=== PATIENT | male | born 1990 | race Caucasian/White ===

== ENCOUNTER 2017-02-01 20:38 | Observation (INO) ==
[2017-02-01 21:30] LABS: Basophils % 0.8 %; Eosinophils # 0.1 K/mcL (0.0-0.6); Eosinophils % 2.2 %; Hematocrit 41.2 % (37.5-50.1); Hemoglobin 13.2 g/dL (12.9-16.9); Immature Platelets 5.5 % (1.1-6.1); Lymphocytes # 2.1 K/mcL (0.6-4.6); Lymphocytes % 43.1 %; Mean Corpuscular Hemoglobin 28.6 pg (28.0-33.3); Mean Corpuscular Volume 89.2 fL (83.0-100.0); Mean Platelet Volume 10.7 fL (9.4-12.4); Monocytes # 0.4 K/mcL (0.0-1.3); Monocytes % 7.3 %; Neutrophils # 2.3 K/mcL (1.6-8.9); Platelet Count 233 K/mcL (140-400); Red Blood Count 4.62 M/mcL (4.19-5.50); Red Cell Distribution Width 13.4 % (11.5-14.5); Segmented Neutrophils % 46.6 %
[2017-02-01] MEDS ORDERED: Ondansetron ODT 4 MG TAB.RAPDIS SL ONE (21:41)
[2017-02-01 21:45] LABS: BUN/Creatinine Ratio 14 (6-26); Blood Urea Nitrogen 15 mg/dL (8-26); Calcium 9.6 mg/dL (8.6-10.8); Carbon Dioxide 26 mEq/L (19-29); Chloride 109 mEq/L (98-109); Glucose 130 mg/dL (70-99); Osmolality,Calculated 299 (280-300); Potassium 4.2 mEq/L (3.5-4.5); Sodium 143 mEq/L (136-145); eGFR For African Americans > 60 (> 60); eGFR For Non-African Americans > 60 (> 60)
--- NOTE | 2017-02-01 21:48 | Emergency Department Note ---
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 Roxanna states that he has been in withdrawl for the past 48 hours and has been nauseated and today made a comment about "how he would rather than go through this." His grandmother became increasingly concerned and asked him to come to the ED because he had made a suicidal type statement. Roxanna states that he has had a few episodes of vomitting and diarrhea but it otherwise tolerate the withdrawl well. Alexander denies all other symptoms. - Related Data Allergies Allergy/AdvReac Type Severity Reaction Status Date / Time No Known Allergies Allergy Verified 02/01/17 20:48 Constitutional: Denies: fever, chills, weakness, weight change Eyes: Denies: eye pain, eye discharge, vision change ENT ED: Denies: ear pain, throat pain, dental pain, epistaxis, congestion, dysphagia Cardiovascular: Denies: chest pain, palpitations, dyspnea on exertion, edema, syncope Respiratory: Denies: cough, dyspnea, wheezes, hemoptysis Gastrointestinal: Reports: nausea, vomiting, diarrhea. Denies: abdominal pain, constipation, hematemesis, melena, hematochezia Genitourinary: Denies: urgency, dysuria, frequency, hematuria Musculoskeletal: Denies: back pain, neck pain, arthralgia, myalgia Integumentary: Denies: rash, abrasion, lesions Neurological: Denies: headache, weakness, numbness, paresthesias, confusion, abnormal gait, vertigo Psychiatric: Denies: anxiety, depression, suicidal thoughts, homicidal thoughts , auditory hallucinations, visual hallucinations Endocrine: Denies: fatigue Past Medical History - Past Medical History Medical history: Reports: no medical history Psychiatric history: Reports: anxiety, depression - Social History Smoking Status: Never smoker Alcohol use: Reports: none Drug use: Reports: opiates, IVDU, prescription drug abuse Physical Exam - General Limitations: no limitations General appearance: alert, in no apparent distress - Head Head exam: atraumatic, normocephalic, normal inspection - Eye Eye exam: Present: normal appearance, PERRL, EOMI - Expanded Eye Exam Pupils: Left: reactive - ENT ENT exam: normal exam, normal oropharynx, mucous membranes moist - Expanded ENT Exam External ear exam: Present: normal external inspection Mouth exam: Present: normal external inspection Teeth exam: Present: normal inspection Throat exam: Present: normal inspection - Neck Neck exam: Present: normal inspection, full ROM, trachea midline - Chest Chest inspection: Present: normal inspection, symmetric chest wall rise - Respiratory Respiratory exam: Present: normal lung sounds bilaterally - Cardiovascular Cardiovascular exam: Present: regular rate, normal rhythm, normal heart sounds - Abdominal Exam Abdominal exam: Present: soft, Non-Tender. Absent: tenderness, distention, guarding, rebound, rigidity - Extremities Exam Extremities exam: Present: normal inspection, full ROM. Absent: tenderness, pedal edema - Expanded Upper Extremity Exam Shoulder exam: Present: normal inspection, full ROM Arm exam: Present: normal inspection, full ROM Elbow exam: Present: normal inspection, full ROM Forearm/Wrist exam: Present: normal inspection, full ROM Hand exam: Present: normal inspection, full ROM Vascular exam: Normal: capillary refill, radial pulse - Expanded Lower Extremity Exam Hip/Pelvis exam: Present: normal inspection, full ROM Upper leg exam: Present: normal inspection, full ROM Knee exam: Present: normal inspection, full ROM Lower leg exam: Present: normal inspection, full ROM Ankle exam: Present: normal inspection, full ROM Foot/toe exam: Present: normal inspection, full ROM Neurovascular/Tendon exam: Absent: motor deficit, sensory deficit, tendon deficit - Back Exam Back exam: Present: normal inspection, full ROM. Absent: tenderness - Neurological Exam Neurological exam: Present: alert, oriented X3 - Expanded Neurological Exam Patient oriented to: Present: person, place, time Coma Scale Eye Opening: Spontaneous Coma Scale Motor Response: Obeys Commands Coma Scale Verbal Response: Oriented Coma Scale Total: 15 - Psychiatric Psychiatric exam: Present: normal affect, normal mood - Skin Skin exam: Present: warm, dry, intact, normal color Course Course Narrative: we will do a medical clearance and treat his nausea with zofran and then consult 1A. - Reevaluation(s) Reevaluation #1: patient is medically cleared. 1A consulted. Time: 22:20 Reevaluation #2: will sign patient out to night team. Plan is to follow terell reccomendations. He is otherwise medically stable and if he is dispostioned home will need rehab information zofran for symptomatic relief. Time: 22:40 Vital Signs Temperature 98.3 F 02/01/17 20:45 Pulse Rate 97 02/01/17 20:45 Respiratory Rate 20 02/01/17 20:45 Blood Pressure 140/73 02/01/17 20:45 O2 Sat by Pulse Oximetry 100 02/01/17 20:45 Temperature 98.3 F 02/01/17 20:45 Pulse Rate 97 02/01/17 20:45 Respiratory Rate 20 02/01/17 20:45 Blood Pressure 140/73 02/01/17 20:45 O2 Sat by Pulse Oximetry 100 02/01/17 20:45 Oxygen Delivery Oxygen Delivery Room Air Psych - Lab Data Result diagrams: 02/01/17 21:12 02/01/17 21:12 Lab Results 02/01/17 02/01/17 02/01/17 Range/Units 21:12 21:12 22:00 WBC 5.0 (4.3-11.1) K/mcL RBC 4.62 (4.19-5.50) M/mcL Hgb 13.2 (12.9-16.9) g/dL Hct 41.2 (37.5-50.1) % MCV 89.2 (83.0-100.0) fL MCH 28.6 (28.0-33.3) pg MCHC 32.0 (31.6-35.5) g/dL RDW 13.4 (11.5-14.5) % Plt Count 233 (140-400) K/mcL MPV 10.7 (9.4-12.4) fL Immature Gran % 0.0 (0-4) % Seg Neutrophils % 46.6 % Lymphocytes % 43.1 % Monocytes % 7.3 % Eosinophils % 2.2 % Basophils % 0.8 % Neutrophils # 2.3 (1.6-8.9) K/mcL Lymphocytes # 2.1 (0.6-4.6) K/mcL Monocytes # 0.4 (0.0-1.3) K/mcL Eosinophils # 0.1 (0.0-0.6) K/mcL Basophils # 0.0 (0.0-0.2) K/mcL Immature Plt Fraction 5.5 (1.1-6.1) % Sodium 143 (136-145) mEq/L Potassium 4.2 (3.5-4.5) mEq/L Chloride 109 (98-109) mEq/L Carbon Dioxide 26 (19-29) mEq/L BUN 15 (8-26) mg/dL Creatinine 1.10 (0.72-1.25) mg/dL Est GFR ( Amer) > 60 (> 60) Est GFR (Non-Af Amer) > 60 (> 60) BUN/Creatinine Ratio 14 (6-26) Glucose 130 H (70-99) mg/dL Calculated Osmolality 299 (280-300) Calcium 9.6 (8.6-10.8) mg/dL Urine Color Yellow (Yellow) Urine Clarity Clear (Clear) Urine pH 6.0 (5.0-8.0) pH Units Ur Specific [place] 1.030 H (1.010-1.025) Urine Protein Negative (Neg-Trace) mg/dL Urine Glucose (UA) Normal (Normal) mg/dL Urine Ketones Negative (Negative) mg/dL Urine Blood Negative (Negative) Urine Nitrite Negative (Negative) Urine Bilirubin Small H (Negative) Urine Urobilinogen Normal (Normal) mg/dL Ur Leukocyte Esterase Negative (Negative) Salicylates < 5.0 L (15-30) mg/dL Urine Opiates Screen (Unsgzs=933) ng/mL Acetaminophen < 1.0 L (10-30) mcg/mL Ur Barbiturates Screen (Trrztr=200) ng/mL Ur Phencyclidine Scrn (Cutoff=25) ng/mL Ur Amphetamines Screen (Dnvaky=8964) ng/mL U Benzodiazepines Scrn (Gjdjai=198) ng/mL Urine Cocaine Screen (Cutoff= 300) ng/mL U Marijuana (THC) Screen (Cutoff = 50) ng/mL Ethyl Alcohol < 10 (0-10) mg/dL 02/01/17 Range/Units 22:00 WBC (4.3-11.1) K/mcL RBC (4.19-5.50) M/mcL Hgb (12.9-16.9) g/dL Hct (37.5-50.1) % MCV (83.0-100.0) fL MCH (28.0-33.3) pg MCHC (31.6-35.5) g/dL RDW (11.5-14.5) % Plt Count (140-400) K/mcL MPV (9.4-12.4) fL Immature Gran % (0-4) % Seg Neutrophils % % Lymphocytes % % Monocytes % % Eosinophils % % Basophils % % Neutrophils # (1.6-8.9) K/mcL Lymphocytes # (0.6-4.6) K/mcL Monocytes # (0.0-1.3) K/mcL Eosinophils # (0.0-0.6) K/mcL Basophils # (0.0-0.2) K/mcL Immature Plt Fraction (1.1-6.1) % Sodium (136-145) mEq/L Potassium (3.5-4.5) mEq/L Chloride (98-109) mEq/L Carbon Dioxide (19-29) mEq/L BUN (8-26) mg/dL Creatinine (0.72-1.25) mg/dL Est GFR ( Amer) (> 60) Est GFR (Non-Af Amer) (> 60) BUN/Creatinine Ratio (6-26) Glucose (70-99) mg/dL Calculated Osmolality (280-300) Calcium (8.6-10.8) mg/dL Urine Color (Yellow) Urine Clarity (Clear) Urine pH (5.0-8.0) pH Units Ur Specific [place] (1.010-1.025) Urine Protein (Neg-Trace) mg/dL Urine Glucose (UA) (Normal) mg/dL Urine Ketones (Negative) mg/dL Urine Blood (Negative) Urine Nitrite (Negative) Urine Bilirubin (Negative) Urine Urobilinogen (Normal) mg/dL Ur Leukocyte Esterase (Negative) Salicylates (15-30) mg/dL Urine Opiates Screen Negative (Glpdac=899) ng/mL Acetaminophen (10-30) mcg/mL Ur Barbiturates Screen Negative (Rehkki=753) ng/mL Ur Phencyclidine Scrn Negative (Cutoff=25) ng/mL Ur Amphetamines Screen Negative (Ioycjk=2649) ng/mL U Benzodiazepines Scrn Negative (Bozxju=042) ng/mL Urine Cocaine Screen Positive H (Cutoff= 300) ng/mL U Marijuana (THC) Screen Positive H (Cutoff = 50) ng/mL Ethyl Alcohol (0-10) mg/dL Psychiatric Medical Clearance - Medical Clearance Checklist Medical History: No Social History Section defined Current Vitals: Last Vital Signs Temp 98.3 F 02/01/17 20:45 Pulse 97 02/01/17 20:45 Resp 20 02/01/17 20:45 BP 140/73 02/01/17 20:45 Pulse Ox 100 02/01/17 20:45 Psychiatric Lab Panel: Drug Levels and Toxicity 02/01/17 02/01/17 21:12 22:00 Urine Opiates Screen Negative Acetaminophen < 1.0 L Ur Barbiturates Screen Negative Ur Phencyclidine Scrn Negative Ur Amphetamines Screen Negative U Benzodiazepines Scrn Negative Urine Cocaine Screen Positive H U Marijuana (THC) Screen Positive H Ethyl Alcohol < 10 Abnormal Labs: Abnormal lab results Glucose 130 mg/dL (70-99) H 02/01/17 21:12 Ur Specific [place] 1.030 (1.010-1.025) H 02/01/17 22:00 Urine Bilirubin Small (Negative) H 02/01/17 22:00 Salicylates < 5.0 mg/dL (15-30) L 02/01/17 21:12 Acetaminophen < 1.0 mcg/mL (10-30) L 02/01/17 21:12 Urine Cocaine Screen Positive ng/mL (Cutoff= 300) H 02/01/17 22:00 U Marijuana (THC) Screen Positive ng/mL (Cutoff = 50) H 02/01/17 22:00 Statement of Medical Clearance: I have evaluated the patient, reviewed diagnostic information, and certify that the patient's medical condition is sufficiently stable that transfer to the psychiatric unit does not pose a significant risk of deterioration.
[2017-02-01 21:50] LABS: Acetaminophen < 1.0 mcg/mL (10-30); Ethanol < 10 mg/dL (0-10); Salicylate < 5.0 mg/dL (15-30)
[2017-02-01] MEDS ORDERED: CloNIDine Patch 0.1 MG PATCH (WEEKLY) TD STA (21:55)
--- NOTE | 2017-02-01 22:04 | Emergency Department Note ---
Disposition Clinical Impression: Suicidal ideation, Heroin withdrawal Disposition: Still a Patient Condition: Good Referrals: NO,PCP [Primary Care Provider] - Forms: ED Satisfaction Letter General Adult HPI - General Chief complaint: ED Psychiatric Symptoms Stated complaint: SI Source: patient Limitations: no limitations - History of Present Illness Pain Scale: 8 - Related Data Allergies Allergy/AdvReac Type Severity Reaction Status Date / Time No Known Allergies Allergy Verified 02/01/17 20:48 Constitutional: Denies: fever, chills, weakness, weight change Eyes: Denies: eye pain, eye discharge, vision change ENT ED: Denies: ear pain, throat pain, dental pain, epistaxis, congestion, dysphagia Cardiovascular: Denies: chest pain, palpitations, dyspnea on exertion, edema, syncope Respiratory: Denies: cough, dyspnea, wheezes, hemoptysis Gastrointestinal: Reports: nausea, vomiting, diarrhea. Denies: abdominal pain, constipation, hematemesis, melena, hematochezia Genitourinary: Denies: urgency, dysuria, frequency, hematuria Musculoskeletal: Denies: back pain, neck pain, arthralgia, myalgia Integumentary: Denies: rash, abrasion, lesions Neurological: Denies: headache, weakness, numbness, paresthesias, confusion, abnormal gait, vertigo Psychiatric: Denies: anxiety, depression, suicidal thoughts, homicidal thoughts , auditory hallucinations, visual hallucinations Endocrine: Denies: fatigue Past Medical History - Past Medical History Medical history: Reports: no medical history Psychiatric history: Reports: anxiety, depression - Social History Smoking Status: Never smoker Alcohol use: Reports: none Drug use: Reports: opiates, IVDU, prescription drug abuse Physical Exam - General Limitations: no limitations General appearance: alert, in no apparent distress Course - Reevaluation(s) Reevaluation #1: I saw the patient with the resident, Dr. Sinha. Patient presents with issues related opiate withdrawal and depression. He is getting some symptoms of withdrawal which we will treat with clonidine and Zofran. We will medically clear him and then have psychiatry see him. Time: 22:04 Vital Signs Temperature 98.3 F 02/01/17 20:45 Pulse Rate 97 02/01/17 20:45 Respiratory Rate 20 02/01/17 20:45 Blood Pressure 140/73 02/01/17 20:45 O2 Sat by Pulse Oximetry 100 02/01/17 20:45 Temperature 98.3 F 02/01/17 20:45 Pulse Rate 97 02/01/17 20:45 Respiratory Rate 20 02/01/17 20:45 Blood Pressure 140/73 02/01/17 20:45 O2 Sat by Pulse Oximetry 100 02/01/17 20:45 Oxygen Delivery Oxygen Delivery Room Air Medical Decision Making - Lab Data Result diagrams: 02/01/17 21:12 02/01/17 21:12 Lab Results 02/01/17 02/01/17 02/01/17 Range/Units 21:12 21:12 22:00 WBC 5.0 (4.3-11.1) K/mcL RBC 4.62 (4.19-5.50) M/mcL Hgb 13.2 (12.9-16.9) g/dL Hct 41.2 (37.5-50.1) % MCV 89.2 (83.0-100.0) fL MCH 28.6 (28.0-33.3) pg MCHC 32.0 (31.6-35.5) g/dL RDW 13.4 (11.5-14.5) % Plt Count 233 (140-400) K/mcL MPV 10.7 (9.4-12.4) fL Immature Gran % 0.0 (0-4) % Seg Neutrophils % 46.6 % Lymphocytes % 43.1 % Monocytes % 7.3 % Eosinophils % 2.2 % Basophils % 0.8 % Neutrophils # 2.3 (1.6-8.9) K/mcL Lymphocytes # 2.1 (0.6-4.6) K/mcL Monocytes # 0.4 (0.0-1.3) K/mcL Eosinophils # 0.1 (0.0-0.6) K/mcL Basophils # 0.0 (0.0-0.2) K/mcL Immature Plt Fraction 5.5 (1.1-6.1) % Sodium 143 (136-145) mEq/L Potassium 4.2 (3.5-4.5) mEq/L Chloride 109 (98-109) mEq/L Carbon Dioxide 26 (19-29) mEq/L BUN 15 (8-26) mg/dL Creatinine 1.10 (0.72-1.25) mg/dL Est GFR ( Amer) > 60 (> 60) Est GFR (Non-Af Amer) > 60 (> 60) BUN/Creatinine Ratio 14 (6-26) Glucose 130 H (70-99) mg/dL Calculated Osmolality 299 (280-300) Calcium 9.6 (8.6-10.8) mg/dL Urine Color Yellow (Yellow) Urine Clarity Clear (Clear) Urine pH 6.0 (5.0-8.0) pH Units Ur Specific [place] 1.030 H (1.010-1.025) Urine Protein Negative (Neg-Trace) mg/dL Urine Glucose (UA) Normal (Normal) mg/dL Urine Ketones Negative (Negative) mg/dL Urine Blood Negative (Negative) Urine Nitrite Negative (Negative) Urine Bilirubin Small H (Negative) Urine Urobilinogen Normal (Normal) mg/dL Ur Leukocyte Esterase Negative (Negative) Salicylates < 5.0 L (15-30) mg/dL Urine Opiates Screen (Hcsryi=664) ng/mL Acetaminophen < 1.0 L (10-30) mcg/mL Ur Barbiturates Screen (Vnrkix=941) ng/mL Ur Phencyclidine Scrn (Cutoff=25) ng/mL Ur Amphetamines Screen (Rhkxhl=6714) ng/mL U Benzodiazepines Scrn (Tjjgzb=617) ng/mL Urine Cocaine Screen (Cutoff= 300) ng/mL U Marijuana (THC) Screen (Cutoff = 50) ng/mL Ethyl Alcohol < 10 (0-10) mg/dL 02/01/17 Range/Units 22:00 WBC (4.3-11.1) K/mcL RBC (4.19-5.50) M/mcL Hgb (12.9-16.9) g/dL Hct (37.5-50.1) % MCV (83.0-100.0) fL MCH (28.0-33.3) pg MCHC (31.6-35.5) g/dL RDW (11.5-14.5) % Plt Count (140-400) K/mcL MPV (9.4-12.4) fL Immature Gran % (0-4) % Seg Neutrophils % % Lymphocytes % % Monocytes % % Eosinophils % % Basophils % % Neutrophils # (1.6-8.9) K/mcL Lymphocytes # (0.6-4.6) K/mcL Monocytes # (0.0-1.3) K/mcL Eosinophils # (0.0-0.6) K/mcL Basophils # (0.0-0.2) K/mcL Immature Plt Fraction (1.1-6.1) % Sodium (136-145) mEq/L Potassium (3.5-4.5) mEq/L Chloride (98-109) mEq/L Carbon Dioxide (19-29) mEq/L BUN (8-26) mg/dL Creatinine (0.72-1.25) mg/dL Est GFR ( Amer) (> 60) Est GFR (Non-Af Amer) (> 60) BUN/Creatinine Ratio (6-26) Glucose (70-99) mg/dL Calculated Osmolality (280-300) Calcium (8.6-10.8) mg/dL Urine Color (Yellow) Urine Clarity (Clear) Urine pH (5.0-8.0) pH Units Ur Specific [place] (1.010-1.025) Urine Protein (Neg-Trace) mg/dL Urine Glucose (UA) (Normal) mg/dL Urine Ketones (Negative) mg/dL Urine Blood (Negative) Urine Nitrite (Negative) Urine Bilirubin (Negative) Urine Urobilinogen (Normal) mg/dL Ur Leukocyte Esterase (Negative) Salicylates (15-30) mg/dL Urine Opiates Screen Negative (Cykkgg=394) ng/mL Acetaminophen (10-30) mcg/mL Ur Barbiturates Screen Negative (Atojyp=541) ng/mL Ur Phencyclidine Scrn Negative (Cutoff=25) ng/mL Ur Amphetamines Screen Negative (Ijtczo=7629) ng/mL U Benzodiazepines Scrn Negative (Mywkuo=071) ng/mL Urine Cocaine Screen Positive H (Cutoff= 300) ng/mL U Marijuana (THC) Screen Positive H (Cutoff = 50) ng/mL Ethyl Alcohol (0-10) mg/dL Attestation Statement - Attestation Attestation: I, Dr. Rawls, examined this patient [id number] and my medical decision- making was reviewed with Dr. Sinha, Resident Physician. I agree with the documented findings, disposition and treatment plan as described except to the extent set forth below. Please see my progress notes for details.
[2017-02-01 22:11] LABS: Bilirubin,Urine Small (Negative); Blood,Urine Negative (Negative); Clarity,Urine Clear (Clear); Color,Urine Yellow (Yellow); Glucose,Urine (UA) Normal (Normal); Ketones,Urine Negative (Negative); Leukocyte Esterase,Urine Negative (Negative); Nitrite,Urine Negative (Negative); Protein,Urine Negative (Neg-Trace); Urobilinogen,Urine Normal (Normal)
[2017-02-01 22:13] LABS: Amphetamine Screen,Urine Negative ng/mL (Cutoff=1000); Barbiturate Screen,Urine Negative ng/mL (Cutoff=200); Benzodiazepines Screen,Urine Negative ng/mL (Cutoff=200); Cannabinoid Screen,Urine Positive ng/mL (Cutoff = 50); Cocaine Screen,Urine Positive ng/mL (Cutoff= 300); Opiate Screen,Urine Negative ng/mL (Cutoff=300); Phencyclidine Screen,Urine Negative ng/mL (Cutoff=25)
--- NOTE | 2017-02-02 01:01 | Emergency Department Note ---
Disposition Clinical Impression: Suicidal ideation, Heroin withdrawal Disposition: Still a Patient Condition: Good Time of Disposition: 06:10 Psych HPI - General Chief Complaint: ED Psychiatric Symptoms Stated Complaint: SI Time Seen by Provider: 02/02/17 00:02 Source: patient - Related Data Allergies Allergy/AdvReac Type Severity Reaction Status Date / Time No Known Allergies Allergy Verified 02/01/17 20:48 Constitutional: Denies: fever, chills, weakness, weight change Eyes: Denies: eye pain, eye discharge, vision change ENT ED: Denies: ear pain, throat pain, dental pain, epistaxis, congestion, dysphagia Cardiovascular: Denies: chest pain, palpitations, dyspnea on exertion, edema, syncope Respiratory: Denies: cough, dyspnea, wheezes, hemoptysis Gastrointestinal: Reports: nausea, vomiting, diarrhea. Denies: abdominal pain, constipation, hematemesis, melena, hematochezia Genitourinary: Denies: urgency, dysuria, frequency, hematuria Musculoskeletal: Denies: back pain, neck pain, arthralgia, myalgia Integumentary: Denies: rash, abrasion, lesions Neurological: Denies: headache, weakness, numbness, paresthesias, confusion, abnormal gait, vertigo Psychiatric: Denies: anxiety, depression, suicidal thoughts, homicidal thoughts , auditory hallucinations, visual hallucinations Endocrine: Denies: fatigue Past Medical History - Past Medical History Medical history: Reports: no medical history Psychiatric history: Reports: anxiety, depression - Social History Smoking Status: Never smoker Alcohol use: Reports: none Drug use: Reports: opiates, IVDU, prescription drug abuse Physical Exam - General Limitations: no limitations General appearance: alert, in no apparent distress - Head Head exam: atraumatic, normocephalic, normal inspection - Eye Eye exam: Present: normal appearance, PERRL, EOMI - ENT ENT exam: mucous membranes moist - Neck Neck exam: Present: normal inspection, full ROM, trachea midline - Chest Chest inspection: Present: normal inspection, symmetric chest wall rise - Respiratory Respiratory exam: Present: normal lung sounds bilaterally - Cardiovascular Cardiovascular exam: Present: regular rate, normal rhythm, normal heart sounds - Abdominal Exam Abdominal exam: Present: soft, tenderness (mild generalized tenderness ). Absent: distention, guarding, rebound, rigidity - Extremities Exam Extremities exam: Present: normal inspection, full ROM. Absent: tenderness, pedal edema - Neurological Exam Neurological exam: Present: alert, oriented X3 - Psychiatric Psychiatric exam: Present: normal affect, normal mood - Skin Skin exam: Present: warm, dry, intact, normal color Course Course Narrative: Patient was a sign out from the day team, Dr. Sinha and Dr. Rawls. Please see their notes for any additional details. In summary, patient has a history of heroin abuse. He recently stopped using heroin and is having withdrawal symptoms. He is having some mild abdominal cramping and nausea, back pain. Physical exam shows heart regular rate and rhythm, lungs clear to auscultation. Abdominal exam soft, mild generalized tenderness with no rebound or rigidity. Back exam benign. Patient states he was suicidal and had a plan. He was evaluated by psychiatric team. He will be admitted here to the 1A team. Patient was given Bentyl while here for abdominal cramping. Destrehan slip placed on chart. Vital Signs Temperature 98.3 F 02/01/17 20:45 Pulse Rate 97 02/01/17 20:45 Respiratory Rate 20 02/01/17 20:45 Blood Pressure 140/73 02/01/17 20:45 O2 Sat by Pulse Oximetry 100 02/01/17 20:45 Temperature 98.3 F 02/01/17 20:45 Pulse Rate 97 02/01/17 20:45 Respiratory Rate 16 02/02/17 01:26 Blood Pressure 0/0 02/02/17 01:26 O2 Sat by Pulse Oximetry 100 02/01/17 20:45 Oxygen Delivery Oxygen Delivery Room Air Psych - MDM Narrative Medical decision making narrative: Patient was a sign out from the day team, Dr. Sinha and Dr. Rawls. Please see their notes for any additional details. In summary, patient has a history of heroin abuse. He recently stopped using heroin and is having withdrawal symptoms. He is having some mild abdominal cramping and nausea, back pain. Physical exam shows heart regular rate and rhythm, lungs clear to auscultation. Abdominal exam soft, mild generalized tenderness with no rebound or rigidity. Back exam benign. Patient states he was suicidal and had a plan. He was evaluated by psychiatric team. He will be admitted here to the 1A team. Patient was given Bentyl while here for abdominal cramping. Destrehan slip placed on chart. - Medical Records Medical records reviewed: Yes I reviewed the patient's medical records. - Lab Data Lab results reviewed: Yes I reviewed the patient's lab results. Result diagrams: 02/01/17 21:12 02/01/17 21:12 Lab Results 02/01/17 02/01/17 02/01/17 Range/Units 21:12 21:12 22:00 WBC 5.0 (4.3-11.1) K/mcL RBC 4.62 (4.19-5.50) M/mcL Hgb 13.2 (12.9-16.9) g/dL Hct 41.2 (37.5-50.1) % MCV 89.2 (83.0-100.0) fL MCH 28.6 (28.0-33.3) pg MCHC 32.0 (31.6-35.5) g/dL RDW 13.4 (11.5-14.5) % Plt Count 233 (140-400) K/mcL MPV 10.7 (9.4-12.4) fL Immature Gran % 0.0 (0-4) % Seg Neutrophils % 46.6 % Lymphocytes % 43.1 % Monocytes % 7.3 % Eosinophils % 2.2 % Basophils % 0.8 % Neutrophils # 2.3 (1.6-8.9) K/mcL Lymphocytes # 2.1 (0.6-4.6) K/mcL Monocytes # 0.4 (0.0-1.3) K/mcL Eosinophils # 0.1 (0.0-0.6) K/mcL Basophils # 0.0 (0.0-0.2) K/mcL Immature Plt Fraction 5.5 (1.1-6.1) % Sodium 143 (136-145) mEq/L Potassium 4.2 (3.5-4.5) mEq/L Chloride 109 (98-109) mEq/L Carbon Dioxide 26 (19-29) mEq/L BUN 15 (8-26) mg/dL Creatinine 1.10 (0.72-1.25) mg/dL Est GFR ( Amer) > 60 (> 60) Est GFR (Non-Af Amer) > 60 (> 60) BUN/Creatinine Ratio 14 (6-26) Glucose 130 H (70-99) mg/dL Calculated Osmolality 299 (280-300) Calcium 9.6 (8.6-10.8) mg/dL Urine Color Yellow (Yellow) Urine Clarity Clear (Clear) Urine pH 6.0 (5.0-8.0) pH Units Ur Specific [place] 1.030 H (1.010-1.025) Urine Protein Negative (Neg-Trace) mg/dL Urine Glucose (UA) Normal (Normal) mg/dL Urine Ketones Negative (Negative) mg/dL Urine Blood Negative (Negative) Urine Nitrite Negative (Negative) Urine Bilirubin Small H (Negative) Urine Urobilinogen Normal (Normal) mg/dL Ur Leukocyte Esterase Negative (Negative) Salicylates < 5.0 L (15-30) mg/dL Urine Opiates Screen (Ufysrw=235) ng/mL Acetaminophen < 1.0 L (10-30) mcg/mL Ur Barbiturates Screen (Ztnbqs=102) ng/mL Ur Phencyclidine Scrn (Cutoff=25) ng/mL Ur Amphetamines Screen (Nrqvkp=5024) ng/mL U Benzodiazepines Scrn (Fldfyv=965) ng/mL Urine Cocaine Screen (Cutoff= 300) ng/mL U Marijuana (THC) Screen (Cutoff = 50) ng/mL Ethyl Alcohol < 10 (0-10) mg/dL 02/01/17 Range/Units 22:00 WBC (4.3-11.1) K/mcL RBC (4.19-5.50) M/mcL Hgb (12.9-16.9) g/dL Hct (37.5-50.1) % MCV (83.0-100.0) fL MCH (28.0-33.3) pg MCHC (31.6-35.5) g/dL RDW (11.5-14.5) % Plt Count (140-400) K/mcL MPV (9.4-12.4) fL Immature Gran % (0-4) % Seg Neutrophils % % Lymphocytes % % Monocytes % % Eosinophils % % Basophils % % Neutrophils # (1.6-8.9) K/mcL Lymphocytes # (0.6-4.6) K/mcL Monocytes # (0.0-1.3) K/mcL Eosinophils # (0.0-0.6) K/mcL Basophils # (0.0-0.2) K/mcL Immature Plt Fraction (1.1-6.1) % Sodium (136-145) mEq/L Potassium (3.5-4.5) mEq/L Chloride (98-109) mEq/L Carbon Dioxide (19-29) mEq/L BUN (8-26) mg/dL Creatinine (0.72-1.25) mg/dL Est GFR ( Amer) (> 60) Est GFR (Non-Af Amer) (> 60) BUN/Creatinine Ratio (6-26) Glucose (70-99) mg/dL Calculated Osmolality (280-300) Calcium (8.6-10.8) mg/dL Urine Color (Yellow) Urine Clarity (Clear) Urine pH (5.0-8.0) pH Units Ur Specific [place] (1.010-1.025) Urine Protein (Neg-Trace) mg/dL Urine Glucose (UA) (Normal) mg/dL Urine Ketones (Negative) mg/dL Urine Blood (Negative) Urine Nitrite (Negative) Urine Bilirubin (Negative) Urine Urobilinogen (Normal) mg/dL Ur Leukocyte Esterase (Negative) Salicylates (15-30) mg/dL Urine Opiates Screen Negative (Uwbved=999) ng/mL Acetaminophen (10-30) mcg/mL Ur Barbiturates Screen Negative (Gpowlf=266) ng/mL Ur Phencyclidine Scrn Negative (Cutoff=25) ng/mL Ur Amphetamines Screen Negative (Culwcz=4905) ng/mL U Benzodiazepines Scrn Negative (Exjhyl=972) ng/mL Urine Cocaine Screen Positive H (Cutoff= 300) ng/mL U Marijuana (THC) Screen Positive H (Cutoff = 50) ng/mL Ethyl Alcohol (0-10) mg/dL Psychiatric Medical Clearance - Medical Clearance Checklist Does the patient have a NEW psychiatric condition?: No Any abnormalities indicating possible medical illness?: No Any history of medical issues?: No Medical History: No Social History Section defined Any abnormal vital signs prior to transfer?: No Current Vitals: Last Vital Signs Temp 98.3 F 02/01/17 20:45 Pulse 97 02/01/17 20:45 Resp 16 02/02/17 01:26 BP 0/0 02/02/17 01:26 Pulse Ox 100 02/01/17 20:45 Is the patient intoxicated or cognitively impaired?: No Psychiatric Lab Panel: Drug Levels and Toxicity 02/01/17 02/01/17 21:12 22:00 Urine Opiates Screen Negative Acetaminophen < 1.0 L Ur Barbiturates Screen Negative Ur Phencyclidine Scrn Negative Ur Amphetamines Screen Negative U Benzodiazepines Scrn Negative Urine Cocaine Screen Positive H U Marijuana (THC) Screen Positive H Ethyl Alcohol < 10 Any abnormalities on the physical exam?: No Any abnormal labs?: No Abnormal Labs: Abnormal lab results Glucose 130 mg/dL (70-99) H 02/01/17 21:12 Ur Specific [place] 1.030 (1.010-1.025) H 02/01/17 22:00 Urine Bilirubin Small (Negative) H 02/01/17 22:00 Salicylates < 5.0 mg/dL (15-30) L 02/01/17 21:12 Acetaminophen < 1.0 mcg/mL (10-30) L 02/01/17 21:12 Urine Cocaine Screen Positive ng/mL (Cutoff= 300) H 02/01/17 22:00 U Marijuana (THC) Screen Positive ng/mL (Cutoff = 50) H 02/01/17 22:00 Does the patient require durable medical equiptment?: No Is the patient ambulatory?: No Is the patient a fall risk?: No Has the patient been medically cleared?: Yes Attestation Statement - Attestation Attestation: I personally interviewed and examined this patient and my medical decision- making was reviewed with the ED Resident Physician, Dr. Alvarez. I agree with the documented findings, disposition and treatment plan as described except to the extent set forth below. Patient is a 26-year-old white male is here for suicidal ideation as well as heroin withdrawal. Patient is here for medical clearance for further psychiatric evaluation at an outlying facility. Patient was signed out to us by the prior ED shift awaiting final placement following one a consultation. Patient was medically cleared prior to psychiatric evaluation. Reassessed patient he was feeling better following medication administration for withdrawal symptoms and has had no further vomiting at bedside. Agree with exam findings. Patient was admitted to one A for further psychiatric evaluation.
[2017-02-02] MEDS ORDERED: Ibuprofen 400 MG TABLET PO PRN (01:41)
[2017-02-02] MEDS ORDERED: Mag Hydrox/Al Hydrox/Simeth 30 ML UDC PO PRN (01:41)
[2017-02-02] MEDS ORDERED: Haloperidol Lactate 5 MG/ML VIAL IM PRN (01:41)
[2017-02-02] MEDS ORDERED: hydrOXYzine pamoate 25 MG CAPSULE PO PRN (01:41)
[2017-02-02] MEDS ORDERED: MOM Conc 10 ML UD.LIQ PO PRN (01:41)
[2017-02-02] MEDS ORDERED: *HR* LORazepam 2 MG/ML VIAL IM PRN (01:41)
[2017-02-02] MEDS: traZODone 50 MG TABLET PO PRN ×2 (02:44→20:36)
[2017-02-02] MEDS: *HR* LORazepam 1 MG TABLET PO PRN ×2 (09:42→14:04)
--- NOTE | 2017-02-02 11:40 | Psychiatry History & Physical ---
Date of Encounter: 02/02/17 Time of Encounter: 11:20 History of Present Illness Patient Stated Chief Complaint: Suicidal, I need rehabilitation Medicare Admission Attestation: For traditional Medicare patients the provided hospital inpatient services are reasonable and necessary and in the case of services not specified as inpatient -only under 42 CFR 419.22 (n), that they are appropriately provided as inpatient services in accordance 42 CFR 412.3. For Critical Access Hospital the patient may reasonably be expected to be discharged or transferred to a hospital within 96 hours after admission to the Critical Access Hospital. Admitted From: Emergency Dept History of Present Illness: Mr. Vitale is a 26 year old male admitted from the emergency room for evaluation of suicidal ideation and opiate withdrawal. Patient presented to the emergency Department with his grandmother who reported patient is having suicidal thoughts and threatened to hurt himself. He does not get help with his opiate addiction and having a hard time with withdrawal symptoms including nausea and vomiting and diarrhea. Patient denies any suicidal intents but he admitted to opiate dependence and go on suicidal and his intention to stop using and stay clean from drugs. His tox screen in the ED was positive positive for THC and cocaine. Patient has a history of rehabilitation as an inpatient and at that time he was evaluated by psychiatrist and given Effexor and Klonopin but he did not continue medication follow-up. Patient has high school education and currently unemployed but he worked as an auto transmission technician for several years. He admits to smoking cigarettes and drinking alcohol in addition to his opiates dependence. Past Med Surg Social Fam HX - Past Medical History Medical history: no medical history - Past Psychiatric History Psychiatric history: Reports: no psych history - Social History Smoking Status: Never smoker Smokeless Tobacco Status: No Alcohol use: none Drug use: opiates, IVDU, prescription drug abuse Medications & Allergies No Known Home Drugs 02/02/17 [History] Allergies No Known Allergies Allergy (Verified 02/01/17 20:48) Review of Systems Psychiatric: Reports: suicidal ideation Mental Status Exam Patient orientation: Yes Person, Yes Time, Yes Place Level of alertness: Alert Patient appearance: Appropriate, Well Groomed Behavior: calm, cooperative Psychomotor activity: Normal Eye contact: Maintains Eye Contact Mood description: Euthymic/stable Affect description: congruent with mood, full range Speech pattern: Normal rate, Normal rhythm, Normal tone Speech volume: Normal Thought process: Linear, Goal Oriented Thought content: Yes Suicidal ideation, No Homicidal ideation, No Overt delusions Perceptual disturbances: No Auditory hallucinations, No Visual hallucinations Attention span: Capable of Focused Attention Memory description: Grossly Intact Patient reliability: Reliable Historian Intelligence estimate: Average Judgment: Limited Insight: Partial Results - Vital Signs Vital signs: Temp Pulse Resp BP Pulse Ox 98.3 F 97 16 0/0 100 02/01/17 20:45 02/01/17 20:45 02/02/17 01:26 02/02/17 01:26 02/01/17 20:45 - Labs Labs: Laboratory Last Values WBC 5.0 K/mcL (4.3-11.1) 02/01/17 21:12 RBC 4.62 M/mcL (4.19-5.50) 02/01/17 21:12 Hgb 13.2 g/dL (12.9-16.9) 02/01/17 21:12 Hct 41.2 % (37.5-50.1) 02/01/17 21:12 MCV 89.2 fL (83.0-100.0) 02/01/17 21:12 MCH 28.6 pg (28.0-33.3) 02/01/17 21:12 MCHC 32.0 g/dL (31.6-35.5) 02/01/17 21:12 RDW 13.4 % (11.5-14.5) 02/01/17 21:12 Plt Count 233 K/mcL (140-400) 02/01/17 21:12 MPV 10.7 fL (9.4-12.4) 02/01/17 21:12 Immature Gran % 0.0 % (0-4) 02/01/17 21:12 Seg Neutrophils % 46.6 % 02/01/17 21:12 Lymphocytes % 43.1 % 02/01/17 21:12 Monocytes % 7.3 % 02/01/17 21:12 Eosinophils % 2.2 % 02/01/17 21:12 Basophils % 0.8 % 02/01/17 21:12 Neutrophils # 2.3 K/mcL (1.6-8.9) 02/01/17 21:12 Lymphocytes # 2.1 K/mcL (0.6-4.6) 02/01/17 21:12 Monocytes # 0.4 K/mcL (0.0-1.3) 02/01/17 21:12 Eosinophils # 0.1 K/mcL (0.0-0.6) 02/01/17 21:12 Basophils # 0.0 K/mcL (0.0-0.2) 02/01/17 21:12 Immature Plt Fraction 5.5 % (1.1-6.1) 02/01/17 21:12 Sodium 143 mEq/L (136-145) 02/01/17 21:12 Potassium 4.2 mEq/L (3.5-4.5) 02/01/17 21:12 Chloride 109 mEq/L (98-109) 02/01/17 21:12 Carbon Dioxide 26 mEq/L (19-29) 02/01/17 21:12 BUN 15 mg/dL (8-26) 02/01/17 21:12 Creatinine 1.10 mg/dL (0.72-1.25) 02/01/17 21:12 Est GFR ( Amer) > 60 (> 60) 02/01/17 21:12 Est GFR (Non-Af Amer) > 60 (> 60) 02/01/17 21:12 BUN/Creatinine Ratio 14 (6-26) 02/01/17 21:12 Glucose 130 mg/dL (70-99) H 02/01/17 21:12 Calculated Osmolality 299 (280-300) 02/01/17 21:12 Calcium 9.6 mg/dL (8.6-10.8) 02/01/17 21:12 Urine Color Yellow (Yellow) 02/01/17 22:00 Urine Clarity Clear (Clear) 02/01/17 22:00 Urine pH 6.0 pH Units (5.0-8.0) 02/01/17 22:00 Ur Specific [place] 1.030 (1.010-1.025) H 02/01/17 22:00 Urine Protein Negative mg/dL (Neg-Trace) 02/01/17 22:00 Urine Glucose (UA) Normal mg/dL (Normal) 02/01/17 22:00 Urine Ketones Negative mg/dL (Negative) 02/01/17 22:00 Urine Blood Negative (Negative) 02/01/17 22:00 Urine Nitrite Negative (Negative) 02/01/17 22:00 Urine Bilirubin Small (Negative) H 02/01/17 22:00 Urine Urobilinogen Normal mg/dL (Normal) 02/01/17 22:00 Ur Leukocyte Esterase Negative (Negative) 02/01/17 22:00 Salicylates < 5.0 mg/dL (15-30) L 02/01/17 21:12 Urine Opiates Screen Negative ng/mL (Tgpunr=466) 02/01/17 22:00 Acetaminophen < 1.0 mcg/mL (10-30) L 02/01/17 21:12 Ur Barbiturates Screen Negative ng/mL (Tkbyuw=341) 02/01/17 22:00 Ur Phencyclidine Scrn Negative ng/mL (Cutoff=25) 02/01/17 22:00 Ur Amphetamines Screen Negative ng/mL (Ovmape=7067) 02/01/17 22:00 U Benzodiazepines Scrn Negative ng/mL (Xclnqj=160) 02/01/17 22:00 Urine Cocaine Screen Positive ng/mL (Cutoff= 300) H 02/01/17 22:00 U Marijuana (THC) Screen Positive ng/mL (Cutoff = 50) H 02/01/17 22:00 Ethyl Alcohol < 10 mg/dL (0-10) 02/01/17 21:12 Assessment and Plan (1) Substance induced mood disorder Current visit: Yes Status: Acute Plan: Admit inpatient for safety and stabilization, Close observation, Suicide Precautions per unit protocol, Encourage participation in unit milieu, Group Therapy, Monitor sleep, Monitor appetite Additional Plan: Patient had a good response to Effexor in the past, we will start him on Effexor SR 75 mg daily benefit and side effects were discussed is agreeable to start treatment and will monitor. Risks, benefits, side effects, alternatives discussed w/pt: Yes Patient agreeable to treatment: Yes
[2017-02-02] MEDS: Nicotine 2 MG GUM BC PRN ×3 (11:43→18:03)
[2017-02-02] MEDS ORDERED: CloNIDine Patch 0.1 MG PATCH (WEEKLY) TD SCH (11:45)
[2017-02-02] MEDS: Venlafaxine XR (24 HR) 75 MG CAP.ER.24H PO SCH (12:38)
[2017-02-03] MEDS: Venlafaxine XR (24 HR) 75 MG CAP.ER.24H PO SCH (08:21)
[2017-02-03] MEDS: Nicotine 2 MG GUM BC PRN ×4 (08:25→20:07)
--- NOTE | 2017-02-03 16:09 | Psychiatry Progress Note ---
Date of Encounter: 02/03/17 Time of Encounter: 13:30 Subjective Interval history: Patient is here for follow-up. He denies any withdrawal symptoms denies nausea or vomiting. More stable he denies any problem with sleep and he denies suicidal ideation. He is not sure what his discharge plan for living situation yet and is working with oncology social work to locate a facility for his placement or living situation. Review of Systems Psychiatric: Reports: suicidal ideation Objective: Exam Patient orientation: Yes Person, Yes Time, Yes Place Level of alertness: Alert Patient appearance: Appropriate, Well Groomed Behavior: calm, cooperative, guarded Psychomotor activity: Normal Eye contact: Maintains Eye Contact Mood description: Euthymic/stable, Anxious Affect description: congruent with mood, full range Speech pattern: Normal rate, Normal rhythm, Normal tone Speech volume: Normal Thought process: Linear, Goal Oriented Thought content: No Suicidal ideation, No Homicidal ideation, No Overt delusions Perceptual disturbances: No Auditory hallucinations, No Visual hallucinations Judgment: Fair Insight: Partial Results - Vital Signs Vital Signs: Temp Pulse Resp BP Pulse Ox 98.9 F 62 16 124/75 100 02/03/17 08:25 02/03/17 08:25 02/03/17 08:25 02/03/17 08:25 02/01/17 20:45 Assessment and Plan (1) Substance induced mood disorder Current visit: Yes Status: Acute Plan: Continue hospitalization, Close observation, Suicide Precautions per unit protocol, Encourage participation in unit milieu, Group Therapy, Monitor sleep, Monitor appetite Risks, benefits, side effects, alternatives discussed w/pt: Yes Patient agreeable to treatment: Yes Consult Discharge Plan - Plan Referrals: [facility] [Outside] - 03/15/17 10:30 am (The above appointment is with Jojo Ram. Please arrive 15 minutes early to complete paperwork. Please bring your insurance card, photo ID and medications in their original bottles. If you do not have insurance, bring proof of income to apply for the sliding fee scale. If you are unable to keep this appointment, 24 hour business notice of cancellation is expected. ) [facility] [Outside] - 02/15/17 8:00 am (The above appointment is with Anisha to open your case and start services, as well as to assess you for Vivitrol. This is the first new patient appointment available. You may contact the office daily to check for cancellations that would allow you to be seen sooner.)
[2017-02-03] MEDS: traZODone 50 MG TABLET PO PRN (21:42)
[2017-02-04] MEDS: Nicotine 2 MG GUM BC PRN ×2 (07:51→10:28)
[2017-02-04] MEDS: Venlafaxine XR (24 HR) 75 MG CAP.ER.24H PO SCH (08:30)
[2017-02-04 09:15] VITALS: BP 116/70
--- NOTE | 2017-02-04 10:13 | Discharge Summary ---
Date of Encounter: 02/04/17 Time of Encounter: 10:11 Diagnosis - Discharge Diagnosis (1) Substance induced mood disorder Status: Acute Medications - Discharge Medications Prescriptions: Venlafaxine XR (24 HR) [Effexor XR] 75 mg PO DAILY #30 cap.er.24h Venlafaxine XR (24 HR) [Effexor XR] 75 mg PO DAILY #30 cap.er.24h 02/04/17 [Rx] Allergies No Known Allergies Allergy (Verified 02/01/17 20:48) Provider Date of admission: 02/02/17 01:28 Primary care physician: PCP NO Discharging clinician: Wes Ruby Assessment and Plan - Patient/Caregiver Discharge Instructions Activity: resume usual activities as tolerated Diet: regular diet - Follow up Plan Follow up with: [facility] [Outside] - 03/15/17 10:30 am (The above appointment is with Jojo Ram. Please arrive 15 minutes early to complete paperwork. Please bring your insurance card, photo ID and medications in their original bottles. If you do not have insurance, bring proof of income to apply for the sliding fee scale. If you are unable to keep this appointment, 24 hour business notice of cancellation is expected. ) [facility] [Outside] - 02/15/17 8:00 am (The above appointment is with Anisha to open your case and start services, as well as to assess you for Vivitrol. This is the first new patient appointment available. You may contact the office daily to check for cancellations that would allow you to be seen sooner.) Functional capacity at discharge: independent ambulation Overall status at discharge: Stable Disposition: Home, Self-Care Hospital Course Hospital course: Mr. Vitale is a 26 year old male admitted to the emergency room suicidal ideation and dependence. For details of admission please see H&P On the units patient was monitored for withdrawal symptoms from opiates and recovering without any complication he was started on Effexor XR 75 mg and tolerated the medication he reported improved sleep and denies suicidal ideation participated in some activities and groups. His discharge planning was managed by the social insurance analyst and recommendation on follow-up were provided. Prior to discharge patient was medically stable, tolerating medication without any side effects and denied any suicidal ideation. - Time Spent with Patient Total time spent providing and/or coordinating discharge services: Less than 30 minutes Quality - Multiple Antipsychotics Patient discharged on 2 or more antipsychotic medications: No Procedures - Procedures Procedures: Medication Management, Crisis Stabilization, Supportive Therapy, Group Therapy, Psychoeducational Therapy Mental Status Exam - Mental Status Exam Patient orientation: Yes Person, Yes Time, Yes Place Level of alertness: Alert Patient appearance: Appropriate, Well Groomed Behavior: calm, cooperative Psychomotor activity: Normal Eye contact: Maintains Eye Contact Mood description: Euthymic/stable Affect description: congruent with mood, full range Speech pattern: Normal rate, Normal rhythm, Normal tone Speech Volume: Normal Thought process: Linear, Goal Oriented Thought Content: No Suicidal ideation, No Homicidal ideation, No Overt delusions Perceptual Disturbances: No Auditory hallucinations, No Visual hallucinations Judgment: Limited Insight: Partial
== END 2017-02-04 11:05 | disposition home or self-care (01) ==
LOC: 1ANU 20:38 → EMEROO 20:38 → 1ANU 02-02 01:26
PROVIDERS: ADMIT Psychiatry & Neurology Psychiatry; ATTEND Psychiatry & Neurology Psychiatry